=== PATIENT | female | born 1950 | race Caucasian/White ===

== ENCOUNTER 2018-03-23 05:40 | Outpatient (CLI) | payer MEDICARE, BC ==
[2018-03-23 11:03] LABS: Hemoglobin 13.7 g/dL (12.0-16.0); Mean Corpuscular HGB CONC 33.8 g/dL (32.0-36.0); Mean Corpuscular Hemoglobin 29.3 pg (27.0-31.0); Mean Corpuscular Volume 86.5 fL (78.0-98.0); Platelet Count 307 thou/uL (130-400); RBC Distribution Width 11.4 % (11.5-14.5); Red Blood Cell (RBC) Count 4.68 mill/uL (4.20-5.40); White Blood Cell (WBC) Count 7.2 thou/uL (4.8-10.8)
[2018-03-23 11:24] LABS: Anion Gap 14 mmol/L (10-20); BUN (Urea Nitrogen) 19 mg/dL (9.8-20.1); Calc. Creatinine Clearance 0 mL/min (70-130); Calcium 10.6 mg/dL (7.8-10.44); Carbon Dioxide 27 mmol/L (23-31); Chloride 102 mmol/L (98-107); Estimated GFR-MDRD 75; Glucose 128 mg/dL (80-115); Potassium 3.7 mmol/L (3.5-5.1); Sodium 139 mmol/L (136-145)
== END 2018-03-23 05:41 | disposition home or self-care (01) ==
LOC: LABBT 05:40
PROVIDERS: ATTEND Neurological Surgery
DX: Z01.818 Encounter for other preprocedural examination (principal); M48.062 Spinal stenosis, lumbar region with neurogenic claudication
CPT/HCPCS: 80048; 85027; 93005; 93010

== ENCOUNTER 2018-03-23 09:30 | Inpatient (IN) | payer MEDICARE, BC ==
[2018-03-23 10:01] VITALS: BMI 26.3
[2018-03-27] MEDS ORDERED: CEFAZOLIN 2 GM/50 ML BAG ONE (06:18)
[2018-03-27] MEDS ORDERED: Sodium Chloride 0.9% 10 ML ONE (06:26)
[2018-03-27] MEDS ORDERED: Fentanyl 100 MCG/2 ML VIAL ONE ×3 (07:20→09:37)
[2018-03-27] MEDS ORDERED: HYDROmorphone 2 MG/ML VIAL SLOW IVP PRN (09:01)
[2018-03-27] MEDS ORDERED: Ondansetron HCl/PF 4 MG/2 ML Vial IVP PRN (09:01)
[2018-03-27] MEDS ORDERED: Morphine Sulfate 2 MG/ML SYRINGE SLOW IVP PRN (09:01)
[2018-03-27] MEDS ORDERED: Promethazine HCl 25 MG/ML VIAL SLOW IVP PRN (09:01)
[2018-03-27] MEDS ORDERED: PACU-Morphine 4MG/ML VIAL SLOW IVP PRN (09:01)
[2018-03-27] MEDS ORDERED: Promethazine HCl 25 MG/ML VIAL IM PRN ×2 (09:01→09:19)
[2018-03-27] MEDS ORDERED: Meperidine HCl/PF 25 MG/ML VIAL SLOW IVP PRN (09:01)
[2018-03-27] MEDS ORDERED: Mag-Al 1200 mg/1200 mg/30 ML UDCUP PO PRN (09:19)
[2018-03-27] MEDS ORDERED: Morphine 4 MG/ML VIAL SLOW IVP PRN (09:19)
[2018-03-27] MEDS ORDERED: Promethazine 25 MG TAB PO PRN (09:19)
[2018-03-27] MEDS ORDERED: diphenhydrAMINE 25 MG CAP PO PRN (09:19)
[2018-03-27] MEDS ORDERED: Milk Of Magnesia 30 ML UDCUP PO PRN (09:19)
[2018-03-27] MEDS ORDERED: Promethazine HCl 12.5 MG SUPP PR PRN (09:19)
[2018-03-27] MEDS ORDERED: diphenhydrAMINE 50 MG/ML VIAL IVP PRN (09:19)
[2018-03-27] MEDS ORDERED: tiZANidine HCl 4 MG TAB PO PRN (09:19)
[2018-03-27] MEDS ORDERED: Gabapentin 300 MG CAP PO PRN (09:36)
[2018-03-27] MEDS ORDERED: Morphine 2 MG/ML SYRINGE SLOW IVP PRN (09:45)
[2018-03-27] MEDS: Sodium Chloride 0.9% 1,000 ML IV SCH ×2 (11:17→23:25)
--- NOTE | 2018-03-27 12:46 | OP ---
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 PROCEDURES PERFORMED: L4-L5 laminectomy and right facetectomy, foraminotomy, interbody arthrodesis, local morselized autograft, demineralized bone matrix, posterolateral arthrodesis, pedicle screw instrumentation L4-L5. DESCRIPTION OF PROCEDURE: The patient was brought to the operating room and intubated. She was rolled in prone position on gel-filled chest rolls. An incision was made exposing L4 and L5 bilaterally and the level was confirmed by x-ray. We performed complete L5, and inferior L4 laminectomy was completed decompressing the central and lateral recesses at L4-L5. We next turned our attention to the right L4-L5, completely removed the right L4-L5 facet and decompressed the right L4 neural foramen. We did find a far-lateral disk herniation that was debrided and a complete decompression of both right L4 and right L5 was achieved. The disk space was entered and debrided of all disk material, but it was quite collapsed and no interbody device could safely be placed. Bone graft was placed in this area for the purpose of arthrodesis. Next, pedicle screws were placed at L4 and L5 bilaterally using lateral fluoroscopic guidance and then position was confirmed with x-ray. The marisa was secured between the screws connected by nuts, which were final tightened. The wound was then extensively irrigated and maximum hemostasis was secured. A combination of demineralized bone matrix and local morselized autograft was laid over the lamina and posterolateral surfaces for the purpose of arthrodesis. Vancomycin powder was applied and the wound was closed in anatomic layers over drain. Job ID: [id number] [facility]
[2018-03-27] MEDS ORDERED: Ondansetron PF 4 MG/2 ML Vial IM PRN (13:37)
[2018-03-27] MEDS: Ketorolac Tromethamine 30 MG/ML VIAL IVP SCH ×2 (14:10→20:36)
[2018-03-27] MEDS: CEFAZOLIN 2 GM/50 ML-DEXTROSE 2 GM in Premix Bag 1 BAG IVPB SCH ×2 (14:11→23:27)
[2018-03-27] MEDS ORDERED: hydrALAZINE 20 MG/ML VIAL SLOW IVP PRN (14:24)
[2018-03-27] MEDS ORDERED: Dextrose 50% Abboject 50 ML SYRINGE SLOW IVP PRN (14:24)
[2018-03-27] MEDS ORDERED: HumaLOG 300 UNITS/3 ML VIAL SC PRN ×2 (14:24)
[2018-03-27] MEDS ORDERED: Labetalol HCl 100 MG/20 ML VIAL SLOW IVP PRN (14:24)
[2018-03-27] MEDS ORDERED: Dextrose 5% in Water 1,000 ML IV PRN (14:24)
[2018-03-27] MEDS: HYDROcodone/Acetaminophen 10/325 mg Tablet PO PRN ×3 (14:25→23:32)
[2018-03-27] MEDS ORDERED: ePHEDrine/0.9% NaCl/PF SYRINGE 50 mg/10 ml ONE (15:00)
[2018-03-27] MEDS ORDERED: Glycopyrrolate 0.2 MG/ML 5 ML SYRINGE ONE (15:00)
[2018-03-27] MEDS ORDERED: Ketorolac Tromethamine 30 MG/ML VIAL ONE (15:00)
[2018-03-27] MEDS ORDERED: Lidocaine 1% PF 5 ML VIAL ONE (15:00)
[2018-03-27] MEDS ORDERED: Ondansetron PF 4 MG/2 ML Vial ONE (15:00)
[2018-03-27] MEDS ORDERED: PROPOFOL 200 MG/20 ML VIAL ONE (15:00)
[2018-03-27] MEDS: metFORMIN 500 MG TAB PO SCH (17:41)
[2018-03-27] MEDS ORDERED: Losartan/Hydrochlorothiazide 100 mg/25 mg Tablet PO SCH (21:00)
--- NOTE | 2018-03-27 21:20 | CON ---
DATE OF CONSULTATION: 03/27/2018 PRIMARY CARE PHYSICIAN: Dr. Avery at [facility]. ATTENDING PHYSICIAN: Dr. Hwang. REASON FOR ADMISSION: For an elective lumbar laminectomy. REASON FOR CONSULTATION: For the aid in medical management. HISTORY OF PRESENT ILLNESS: Ms. Hamilton is a very pleasant 67-year-old female, who suffered from a severe lumbar radiculopathy from L4-L5 lumbar spondylosis. She had failed conservative treatment and is being admitted for an elective lumbar laminectomy. We are seeing the patient postprocedure and she is currently doing well. She only complains of some nausea that happened right after the procedure and a little bit of dizziness, but otherwise no other complaints. She denies any chest pain or shortness of breath. No PND, no orthopnea, no leg swelling or leg pain. Prior to the procedure, other than pain in her right leg, she was doing okay. She says her diabetes is usually well controlled and her last A1c was around 5.9. REVIEW OF SYSTEMS: All systems were reviewed and are negative except for that mentioned in the history of present illness. PAST MEDICAL HISTORY: Significant for diabetes mellitus, hypertension, and bladder cancer in the 1999. PAST SURGICAL HISTORY: She has had bladder surgery. FAMILY HISTORY: Significant for diabetes in her mother, hypertension, and hypothyroidism. ALLERGIES: NO KNOWN DRUG ALLERGIES. SOCIAL HISTORY: She is , has 2 children. She is a nonsmoker. She occasionally drinks wine. She would like to be a full code and her daughter, Juany Stanley is her medical power of attorney law clerk. CURRENT MEDICATIONS: Include; 1. Hyzaar 100/25. 2. Metformin 500 mg twice daily. 3. Gabapentin as needed. PHYSICAL EXAMINATION: GENERAL: She is alert and oriented. She appears to be in no acute distress. VITAL SIGNS: Blood pressure was 110/70, heart rate 60, respiratory rate of 16, and temperature was 97.6. HEENT: Pupils are equal, round, and reactive. Extraocular muscles are intact. Her sclerae anicteric. Throat, there is no erythema, no exudates. NECK: No adenopathy. No bruits. LUNGS: Clear to auscultation. There is no wheezing, no rales. CARDIOVASCULAR: She has a normal S1 and S2. There is no S3 or S4. No murmurs, clicks, or rubs. ABDOMEN: Soft, nontender, and nondistended. Positive for bowel sounds. There is no rebound, no guarding, no organomegaly. EXTREMITIES: There is no clubbing or cyanosis. No edema. NEUROLOGIC: Nonfocal. SKIN AND INTEGUMENT: There are no skin changes or rash. LABORATORY DATA: She had lab work done on March 23, which was reviewed and is essentially negative. She also had an EKG preoperatively, which was sinus rhythm, the rate was 62, and there was some nonspecific ST-wave changes. This was also reviewed by me. ASSESSMENT: This is a pleasant 67-year-old female, who is being admitted for an elective lumbar laminectomy. She is currently postop and doing quite well. 1. For diabetes mellitus, we will go ahead and restart her metformin. This can be started this evening and as well we will place her on a sliding scale insulin if needed. 2. Hypertension. We will go ahead and restart Hyzaar and there will be p.r.n. medications available as needed, otherwise continue care as per Neurosurgery and we will be happy to follow along with you. Job ID: [id number]
[2018-03-28] MEDS: HYDROcodone/Acetaminophen 10/325 mg Tablet PO PRN ×2 (03:01→11:03)
[2018-03-28] MEDS: Ketorolac Tromethamine 30 MG/ML VIAL IVP SCH ×2 (03:02→07:54)
[2018-03-28] MEDS: CEFAZOLIN 2 GM/50 ML-DEXTROSE 2 GM in Premix Bag 1 BAG IVPB SCH (06:12)
[2018-03-28] MEDS ORDERED: Ondansetron PF 4 MG/2 ML Vial IM PRN (07:36)
[2018-03-28] MEDS: metFORMIN 500 MG TAB PO SCH (07:56)
[2018-03-28 08:37] VITALS: BP 117/71; TEMP 98.3
[2018-03-28] MEDS ORDERED: EPA PO SCH (09:00)
[2018-03-28] MEDS ORDERED: OMEGA PO SCH (09:00)
[2018-03-28] MEDS ORDERED: KRILL PO SCH (09:00)
[2018-03-28] MEDS ORDERED: DHA PO SCH (09:00)
[2018-03-28] MEDS ORDERED: Calcium Carbonate + Vit D 1 TAB PO SCH (09:00)
[2018-03-28] MEDS ORDERED: TUMERIC PO SCH (09:00)
[2018-03-28] MEDS ORDERED: LIPIDS PO SCH (09:00)
[2018-03-28] MEDS: Sodium Chloride 0.9% 1,000 ML IV SCH (11:02)
--- NOTE | 2018-03-29 05:48 | DIS ---
DATE OF ADMISSION: 03/27/2018 DATE OF DISCHARGE: 03/28/2018 HOSPITAL COURSE: The patient is a 67-year-old female, status post L5-S1 decompression and fusion for lumbar stenosis and degenerative disk disease. Following her surgery, she was transitioned to the [facility] floor, where pain was well controlled on p.o. medications, she was tolerating regular diet, and voiding appropriately. She did have a LENARD drain placed intraoperatively, which only had 70 mL of output overnight. This was removed on postoperative day #1. She otherwise reports she is doing very well. She is awake, alert, in no acute distress, sitting up in the bed this morning. Free active range of motion of all extremities. No focal motor weakness. No reflex asymmetry. Incision does have some small amount of drainage on the dressing, which is dark red, but no active drainage is appreciated. We will plan to remove the LENARD drain and dismiss the patient to home. I have discussed home care precautions, and we will follow up with her in two weeks. She has been provided with scripts for hydrocodone, Zanaflex, and Keflex. Job ID: [id number]
[2018-03-29] MEDS ORDERED: Ibuprofen 600 MG TAB PO PRN (14:00)
== END 2018-03-28 11:27 | disposition home or self-care (01) | DRG 460 ==
LOC: SURG A 03-27 06:01 → SJJU 03-27 10:47
PROVIDERS: ADMIT Neurological Surgery; ATTEND Neurological Surgery
PROC: 0SG0071 Fusion of Lumbar Vertebral Joint with Autologous Tissue Substitute, Posterior Approach, Posterior Column, Open Approach (ICD-10-PCS; principal; 2018-03-27)
DX: M47.26 Other spondylosis with radiculopathy, lumbar region (principal); E11.9 Type 2 diabetes mellitus without complications; M51.16 Intervertebral disc disorders with radiculopathy, lumbar region; M48.061 Spinal stenosis, lumbar region without neurogenic claudication; I10 Essential (primary) hypertension; Z85.51 Personal history of malignant neoplasm of bladder; Z98.890 Other specified postprocedural states; Z79.84 Long term (current) use of oral hypoglycemic drugs
CPT/HCPCS: 36416; 76000; C1713; C1768; J1885; J2001; J2270; J2405; J2550; J2704; J3010; J3370; J3490

== ENCOUNTER 2018-04-11 15:35 | Outpatient (CLI) | payer MEDICARE, BC ==
--- NOTE | 2018-04-11 16:33 | RAD ---
LUMBAR SPINE SERIES TWO VIEWS: 04/11/18 HISTORY: Postop. Bilateral pedicle screws have been placed at L4-5. Minimal grade I spondylolisthesis is present. Ther e also appear to be laminectomy changes at this level. There is disc narrowing at L5-S1. The bones ap pear demineralized. IMPRESSION: Postoperative changes of the spine. POS: REMI
== END 2018-04-11 15:36 | disposition home or self-care (01) ==
LOC: TBSIIMAG 15:35
PROVIDERS: ATTEND Neurological Surgery
DX: M43.16 Spondylolisthesis, lumbar region (principal); Z98.890 Other specified postprocedural states
CPT/HCPCS: 72100

== ENCOUNTER 2018-05-23 13:56 | Outpatient (CLI) | payer MEDICARE, BC ==
--- NOTE | 2018-05-23 15:28 | RAD ---
LUMBAR SPINE 2 VIEWS: HISTORY: Surgery. Back pain. M43.16, M48.062. COMPARISON: Comparison radiographs are 04/11/2018. FINDINGS: There is a similar appearance to posterior spinal fusion hardware at L4-5. Anterolisthesis is simila r. No evidence for hardware malfunction. Laminectomy changes at L4 and L5. No acute superimposed fracture. Moderate vascular calcifications of the aorta. IMPRESSION: Satisfactory postoperative appearance. POS: REMI
== END 2018-05-23 13:57 | disposition home or self-care (01) ==
LOC: TBSIIMAG 13:56
PROVIDERS: ATTEND Neurological Surgery
DX: M43.16 Spondylolisthesis, lumbar region (principal); M48.062 Spinal stenosis, lumbar region with neurogenic claudication; Z98.890 Other specified postprocedural states
CPT/HCPCS: 72100

== ENCOUNTER 2018-08-15 13:27 | Outpatient (CLI) | payer MEDICARE, BC ==
--- NOTE | 2018-08-15 13:49 | RAD ---
XR Lumbar Spine 2 Or 3 View: 08/15/2018 12:00 AM CLINICAL INDICATION: Prior low back surgery, follow-up imaging COMPARISON: 05/23/2018 FINDINGS: Posterior metallic fusion of L4-5 present, with bilateral pedicle screws and vertical interconnecting rods. Fracture:No fracture. Alignment: Grade 1 spondylolisthesis of L4-5 is stable Arthropathy:Multilevel degenerative facet hypertrophy. There is disc degenerative disease with disc s pace narrowing at L4-5 and L5-S1. Moderate endplate osteophytosis at the L5-S1 levels present. Endplate degenerative changes are also present at the lower thoracic spine and thoracolumbar junction . Incidental findings:Atherosclerosis IMPRESSION: Stable spondylolisthesis of L4-5.
== END 2018-08-15 13:28 | disposition home or self-care (01) ==
LOC: TBSIIMAG 13:27
PROVIDERS: ATTEND Neurological Surgery
DX: M48.062 Spinal stenosis, lumbar region with neurogenic claudication (principal); M43.16 Spondylolisthesis, lumbar region
CPT/HCPCS: 72100